=== PATIENT | female | born 1975 | race African-American/Black ===

== ENCOUNTER → 2016-08-29 | Outpatient (CLI) | payer BC | LOC: ULTRA 07:29 | DX: N92.0 Excessive and frequent menstruation with regular cycle (principal) ==

== ENCOUNTER → 2017-03-28 | Outpatient (CLI) | payer BC | LOC: RAD 08:43 | DX: Z12.31 Encounter for screening mammogram for malignant neoplasm of breast (principal) ==

== ENCOUNTER → 2018-04-09 | Outpatient (CLI) | payer BC | LOC: RAD 11:35 | DX: Z12.31 Encounter for screening mammogram for malignant neoplasm of breast (principal); I48.91 Unspecified atrial fibrillation ==

== ENCOUNTER → 2020-01-14 | Outpatient (CLI) | payer OTHER | LOC: CAT 08:13 | DX: Z13.6 Encounter for screening for cardiovascular disorders (principal); I25.10 Atherosclerotic heart disease of native coronary artery without angina pectoris; E78.00 Pure hypercholesterolemia, unspecified ==

== ENCOUNTER → 2021-07-01 | Outpatient (CLI) | payer BC | LOC: MRI 09:36 | PROVIDERS: ATTEND Nurse Practitioner | DX: R41.0 Disorientation, unspecified (principal); W19.XXXA Unspecified fall, initial encounter ==